=== PATIENT | female | born 1965 | race Caucasian/White ===

== ENCOUNTER 2016-12-13 02:30 | Emergency (ER) | payer MEDICAID | END 2016-12-13 04:00 | disposition home or self-care (01) | LOC: D.ER 02:30 | DX: S80.11XA Contusion of right lower leg, initial encounter (principal); W19.XXXA Unspecified fall, initial encounter; F17.200 Nicotine dependence, unspecified, uncomplicated ==

== ENCOUNTER 2017-07-30 12:07 | Emergency (ER) | payer MEDICAID | END 2017-07-30 13:22 | disposition home or self-care (01) | LOC: D.ER 12:07 | DX: J11.1 Influenza due to unidentified influenza virus with other respiratory manifestations (principal); J20.9 Acute bronchitis, unspecified ==